=== PATIENT | female | born 1960 | race Two or more races ===

== ENCOUNTER 2016-09-18 13:24 | Emergency (ER) | payer BC ==
[~2016-09-18] VITALS: Ht 157.5 cm; Wt 65.8 kg
[2016-09-18] MEDS ORDERED: IV NS 0.9% 1,000 ML BAG IV ONE (13:30)
[2016-09-18 13:46] LABS: BASOPHILS % (AUTO) 0.3 % (0.0-2.0); DIFF TOTAL % 100 %; EOSINOPHILS # (AUTO) 0.3 /CMM (0.0-0.7); HEMATOCRIT 39 % (33-45); HEMOGLOBIN 13.1 g/dL (11.5-14.8); LYMPHOCYTES # (AUTO) 1.7 /CMM (0.8-4.8); LYMPHOCYTES % (AUTO) 17.3 % (20.0-44.0); MEAN CORPUSCULAR HEMOGLOBIN 29 PG (26.0-33.0); MEAN CORPUSCULAR HGB CONC 34 g/dl (31.0-36.0); MEAN CORPUSCULAR VOLUME 86 fL (82-100); MONOCYTES # (AUTO) 0.5 /CMM (0.1-1.30); MONOCYTES % (AUTO) 5.2 % (2.0-12.0); NEUTROPHILS # (AUTO) 7.3 /CMM (1.8-8.9); NEUTROPHILS % (AUTO) 74.2 % (43.0-81.0); PLATELET COUNT (AUTO) 208 /CMM (150-450); RED BLOOD CELL COUNT(AUTO) 4.53 MIL/uL (4.0-5.2); WHITE BLOOD COUNT (AUTO) 9.8 K/uL (4.3-11.0)
[2016-09-18] MEDS ORDERED: ATOR40TA PO (13:52)
[2016-09-18] MEDS ORDERED: VITA1TAB56 PO (13:52)
[2016-09-18] MEDS ORDERED: PARO10TA26 PO (13:52)
[2016-09-18] MEDS ORDERED: AMOX1TAB16 PO (13:52)
[2016-09-18] MEDS ORDERED: MULT-659 PO (13:52)
[2016-09-18] MEDS ORDERED: IV NS 0.9% 1,000 ML ONE (13:52)
[2016-09-18] MEDS ORDERED: UBID100C13 PO (13:52)
[2016-09-18] MEDS ORDERED: CHOL100044 PO (13:52)
[2016-09-18] MEDS ORDERED: CALC500T52 PO (13:52)
[2016-09-18] MEDS ORDERED: IV SET PRIMARY 1 EA INFUS.SET MC ONE (13:52)
[2016-09-18] MEDS ORDERED: LANS30CA10 PO (13:52)
[2016-09-18] MEDS ORDERED: PARO7.5C PO (13:53)
[2016-09-18 13:58] LABS: ANION GAP 13 (5-14); CALCIUM, SERUM 8.4 mg/dL (8.5-10.1); CARBON DIOXIDE 27 mmol/L (21-32); CHLORIDE 105 mmol/L (98-107); CREATININE 0.7 mg/dL (0.6-1.3); GFR 87 mL/min (>60); GLUCOSE 103 mg/dL (74-106); POTASSIUM 3.9 mmol/L (3.5-5.1); SODIUM SERUM 141 mmol/L (136-145); UREA NITROGEN, BLOOD 14 mg/dL (7-18)
[2016-09-18 14:00] LABS: INR 1.08 (0.87-1.13); PROTHROMBIN TIME 11.3 SECS (9.5-12.7)
[2016-09-18 14:08] LABS: TROPONIN I < 0.017 ng/mL (0.00-0.056)
[2016-09-18 15:15] VITALS: BP 118/76
== END 2016-09-18 15:18 | disposition home or self-care (01) ==
LOC: ER 13:26
DX: I95.1 Orthostatic hypotension (principal); R55 Syncope and collapse; E78.00 Pure hypercholesterolemia, unspecified; K21.9 Gastro-esophageal reflux disease without esophagitis
CPT/HCPCS: 36415; 71010; 80048; 84484; 85025; 85730; 93005; 99285; A4606; J7030; Z7610